=== PATIENT | male | born 1985 | race Caucasian/White ===

== ENCOUNTER 2018-11-22 14:32 | Outpatient (CLI) | payer MEDICAID, SELFPAY ==
[2018-11-28 18:21] LABS: Result Summary NEGATIVE; Specimen WB Whole Blood
== END 2018-11-22 14:52 ==
PROVIDERS: Visit Provider Advanced Practice Midwife
DX: Z13.79 Encounter for other screening for genetic and chromosomal anomalies (principal)
CPT/HCPCS: 81220

== ENCOUNTER 2018-12-28 01:56 | Outpatient (CLI) | payer MEDICAID, SELFPAY ==
[2018-12-28 08:29] LABS: ALT 29 U/L (12-78); AST 20 U/L (15-37); Alkaline Phosphatase 71 U/L (46-116); Anion Gap 7.7 mmol/L (3-11); BUN 15 mg/dL (7-18); Bilirubin, Total 0.7 mg/dL (0.2-1.0); CO2 29.3 mmol/L (21.0-32.0); CREATININE 0.98 mg/dL (0.70-1.30); Calcium 9.1 mg/dL (8.5-10.1); Chloride 104 mmol/L (98-107); Cholesterol 196 mg/dL (50-200); Glucose 87 mg/dL (70-100); HDL Cholesterol 58 mg/dL (40-60); LDL CHOLESTEROL 125 mg/dL (<100); Potassium 4.4 mmol/L (3.5-5.1); Sodium 141 mmol/L (136-145); Total Protein 7.1 g/dL (6.4-8.2); Triglyceride 42 mg/dL (30-150)
== END 2018-12-28 02:16 ==
PROVIDERS: Visit Provider Family Medicine
DX: Z13.220 Encounter for screening for lipoid disorders (principal); Z13.228 Encounter for screening for other metabolic disorders
CPT/HCPCS: 36415; 80053; 80061; 83721

== ENCOUNTER 2019-06-18 18:31 | Inpatient (IN) | payer OTHER, SELFPAY ==
[2019-06-18] VITALS (30 sets, daily range): BP systolic 114–153; BP diastolic 60–90; PULSE 68–111; RESP 4–30; TEMP 36.2–37.4; O2SAT 92–98
[2019-06-18] MEDS: Albuterol/Ipratropium 3 ML UPD VIAL UPD ×2 (18:51→23:15)
[2019-06-18] MEDS: methylPREDNISolone SUCC 125 MG VIAL IVP (18:51)
--- NOTE | 2019-06-18 18:54 | NUR.NOTE ---
Nursing Note: pt reports nausea, verbal order for zofran obtained but pt declines moved pt to room 6
[2019-06-18 19:01] LABS: Abs Immature Grans 0.03 k/cumm (0.0-0.09); HCT 46.1 % (40.0-50.0); Mean Corp. HGB Concentration 34.7 g/dL (32.0-36.0); Mean Corpuscular Volume 83.5 fL (80-95); Mean Platelet Volume 9.7 fL (8.0-11.0); Platelet Count 279 x1000/uL (130-400); RBC 5.52 m/cumm (4.50-6.00); RBC Distribution Width 13.8 % (11.8-14.1); White Blood Cell Count 12.05 k/cumm (4.4-10.8)
[2019-06-18 19:03] LABS: BE (Venous) 4.8 mmol/L (-3-3); HCO3 (Venous) 30 mmol/L (22-28); O2 Sat (Venous) 48 % (70-80); TCO2 (Venous) 27 mmol/L (22-29); pCO2 (Venous) 52 mm/Hg (34-47); pH (Venous) 7.37 (7.32-7.43); pO2 (Venous) 28 mm/Hg (28-44)
--- NOTE | 2019-06-18 19:15 | DI.RAD_ITS ---
EXAM: XR CHEST 2V PA LATERAL INDICATION: sob, diminished in right lung trevino. COMPARISON: No exams were available for comparison TECHNIQUE: 2D digital imaging was performed. FINDINGS: The heart is not enlarged. Bilateral scattered linear radiodensities may represent small areas of sc arring or atelectasis. No gross consolidation seen. No pleural effusion seen. IMPRESSION: Question bilateral areas atelectasis or scarring. No other significant abnormality.
[2019-06-18 19:21] LABS: ALT 24 U/L (16-63); AST 15 U/L (15-37); Albumin 4.1 g/dL (3.4-5.0); Alkaline Phosphatase 86 U/L (46-116); Bilirubin, Total 0.3 mg/dL (0.2-1.0); CREATININE 1.23 mg/dL (0.70-1.30); Calcium 9.1 mg/dL (8.5-10.1); Chloride 104 mmol/L (98-107); Glucose 101 mg/dL (70-100); Potassium 4.2 mmol/L (3.5-5.1); Sodium 143 mmol/L (136-145); Total Protein 7.9 g/dL (6.4-8.2); Troponin I 0.05 ng/mL (0.00-0.06)
[2019-06-18 19:30] LABS: Absolute Eosinophil Count 1.33 k/cumm (0.0-0.7); Absolute Lymphocyte Count 2.17 k/cumm (1.2-3.4); Absolute Monocyte Count 1.21 k/cumm (0.11-0.7); Absolute Neutrophil Count 7.35 k/cumm (1.2-6.7); Atypical Lymphocytes % 3; Diff Comment Manual Differential; RBC Morphology Normal
[2019-06-18 19:46] LABS: BUN 17 mg/dL (7-18)
--- NOTE | 2019-06-18 19:56 | DI.VRAD_ITS ---
PROCEDURE INFORMATION: Exam: XR Chest, 2 Views Exam date and time: 06/18/2019 7:25 PM Clinical history: 33 years old, male; Cough and shortness of breath; Patient HX: SOB and cough for a few days worsening today TECHNIQUE: Imaging protocol: XR of the chest Views: 2 views. COMPARISON: No relevant prior studies available. FINDINGS: Lungs: Unremarkable. No consolidation. Pleural space: Unremarkable. No pleural effusion. No pneumothorax. Heart/Mediastinum: Unremarkable. No cardiomegaly. Bones/joints: Unremarkable. IMPRESSION: No acute findings. Dictated and Authenticated by: Aleida Sosa MD. Ordering:JON Mckinney MD
[2019-06-18] MEDS: Albuterol/Ipratropium 3 ML UPD VIAL (20:18)
--- NOTE | 2019-06-18 20:37 | ED.GENADUL_ITS ---
Discharge Plan Disposition Patient Disposition: [facility] INPATIENT Condition: Good Discharge Details Chief Complaint: SOB Clinical Impression: Reactive airway disease, SOB (shortness of breath) Primary Care Provider: Richard Herron ED Provider: Hank Parikh Home Meds and New Rx's Prescriptions: No Action albuterol sulfate 90 mcg/actuation HFA aerosol inhaler 2 puff IH Q6H PRN (Reason: shortness of breath or wheezing) Qty: 18 RF: 6 Medical Decision Making This is a 33-year-old male with no past medical history to speak of who presents today for shortness of breath. He had a recent mild cough over the last few days, mild shortness of breath, he was started on an inhaler by his PCP, as well as reflux medications. However tonight he had a sudden onset of se laine notable right-sided shortness of breath. Upon arrival to the ED he had almost no breath sounds in his right lung trevino, diminished breath sounds on the left, however he was not hypoxic he was notably tachypneic. EKG was unremarkable, concern was for acute reactive airway disease. He does not smoke, he has no history of reactive airway disease. He denies any type of work that would preclude him to reactive airway disease. He denies any concerning red flags for pulmonary embolism. He denies any history of fever. He was given 3 breathing treatments, he had mild to moderate improvement of his breath sounds, wheezes did start in the right lung trevino. Patient's oxygen stayed relatively stable however he did have mild dips into the low 90s. He was given 2 L of supplemental oxygen. At this time his respiratory status is notably improved, however with his continued mild to moderate shortness of breath with no clear clinical history of asthma I do feel that 12 the 24-hour observation is indicated for continued breathing treatments, steroids, close management. I discussed the case with the hospitalist and he agrees. I have extensively reviewed the treatment plan with the patient. I have addressed all patient concerns at this time. I have also discussed the plan with the admitting physician and they agree with the current assessment and plan and have agreed to assume responsibility for the patient. All parties demonstrate verbal understanding and agreement with our assessment and plan at this time. EKG 18: 39 Rate 86, no significant ST elevations or depressions, no T wave inversions, no significant Q waves. No evidence of STEMI. FINDINGS: Lungs: Unremarkable. No consolidation. Pleural space: Unremarkable. No pleural effusion. No pneumothorax. Heart/Mediastinum: Unremarkable. No cardiomegaly. Bones/joints: Unremarkable. IMPRESSION: No acute findings. Dictated and Authenticated by: Aleida Sosa MD. Ordering:JON Mckinney MD HPI General Date/Time Provider Initiated Documentation: 06/18/19 18:38 . 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 Patient has never smoked, he denies any history of lung disease or difficulty breathing. Over the last few days he has noticed a mild cough, with some occasional mild shortness of breath. He was started on an inhaler by his PCP, as well as some mild reflux medications. These did not seem to help much at all, and then this evening he presents today for evaluation of severe shortness of breath and tachypnea. He states that he feels that he cannot breathe at all, he feels notably short of breath. He denies any chest pain, hemoptysis, or productive yellow sputum.. Denies PE risk factors such as recent long car rides, immobilization, recent surgery, prior history of DVT or PE, family history of PE or DVT, morbid obesity, exogenous estrogen and smoking, hemoptysis, history of cancer. He has no other complaints at this time. No other modifying factors. Related Data Home Medications Medication Instructions Recorded Confirmed albuterol sulfate 90 mcg/actuation 2 puff IH Q6H PRN #18 gm 06/16/19 06/18/19 aerosol inhaler Previous Rx's Medication Instructions Recorded albuterol sulfate 90 mcg/actuation 2 puff IH Q6H PRN #18 gm 06/16/19 aerosol inhaler Allergies Allergy/AdvReac Type Severity Reaction Status Date / Time No Known Allergies Allergy Verified 06/18/19 18:59 General Stated Complaint: SOB KAYLAN: 2 Review of Systems Review of Systems ROS Unobtainable: All systems reviewed & are unremarkable except as noted in HPI and below PFSH Medical History (Updated 06/16/19 @ 08:18 by Richard Herron DO) Allergic asthma (Acute) Family History (Updated 12/23/18 @ 08:56 by Denisse Long LPN) Mother No problems noted. Father Hypertension Brother No problems noted. Brother No problems noted. 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 Current gender identity: male What is your relationship status?: Panel score (0-1 are the most socially isolated patients): 1 What type of physical activity do you participate in: other Details: physically active with job Frequency: 5-6 times per week Seatbelt use: always 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 3.ENT: Atraumatic external nose and ears. Moist MM. Neck: Symmetric, trachea midline, No thyromegaly. 4.CVS: +S1/S2, No murmurs or gallops. Peripheral pulses 2+ and equal in all extremities. Brisk capillary refill in all extremities. 5.RESP: Notable tachypnea, notable respiratory effort, nearly absent breath sounds on the right, mild breath sounds are present on the left. No wheezes rales or rhonchi whatsoever. 6.GI: Soft, Nontender/Nondistended, No hepatosplenomegaly. No guarding or rebound. 7.MSK: Normocephalic/Atraumatic, Extremities w/o deformity or ttp No cyanosis or clubbing, Normal movement of all extremities 8.Skin: Warm, Dry. No rashes or lesions. 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 Sensation grossly intact, no focal neurologic deficits. 10.Psych: (AAO) x3. Appropriate mood and affect Course Vital Signs Vital signs: Vital Signs Temperature 36.2 C L 06/18/19 18:41 Pulse 88 06/18/19 18:41 Respiratory Rate 30 H 06/18/19 18:41 Blood Pressure 132/90 06/18/19 18:41 Pulse Oximetry 95 06/18/19 18:41 Temperature 37.4 C 06/18/19 19:53 Temperature Source Temporal Artery Scan 06/18/19 19:53 Pulse 77 06/18/19 20:18 Pulse 89 06/18/19 19:50 Respiratory Rate 24 06/18/19 20:18 Respiratory Effort Labored 06/18/19 19:06 Respiratory Pattern Tachypnea 06/18/19 19:06 Blood Pressure 117/77 06/18/19 19:46 Blood Pressure Mean 88 06/18/19 19:46 Blood Pressure Position Sitting 06/18/19 18:41 Pulse Oximetry 98 06/18/19 20:18 Oxygen Delivery Method Nasal Cannula 06/18/19 20:18 Oxygen Flow Rate 2 06/18/19 20:18 Pain Level 0 06/18/19 18:41 Lab/Test Results Lab/Test Results: Laboratory Tests Range/Units 06/18/19 06/18/19 06/18/19 15:43 15:43 15:43 WBC (4.4-10.8) k/cumm 12.05 H RBC (4.50-6.00) m/cumm 5.52 Hgb (13.5-17.5) g/dL 16.0 Hct (40.0-50.0) % 46.1 MCV (80-95) fL 83.5 MCH (27.0-33.0) pg 29.0 MCHC (32.0-36.0) g/dL 34.7 RDW (11.8-14.1) % 13.8 Plt Count (130-400) x1000/uL 279 MPV (8.0-11.0) fL 9.7 Immature Gran % 0.0 Neutrophils % 61.0 Band Neutrophils % % 0.0 Lymphocytes % 15.0 Atypical Lymphs % 3 Monocytes % 10.0 Eosinophils % 11.0 Basophils % 0.0 Absolute Neutrophils (1.2-6.7) k/cumm 7.35 H Absolute Lymphocytes (1.2-3.4) k/cumm 2.17 Absolute Monocytes (0.11-0.7) k/cumm 1.21 H Absolute Eosinophils (0.0-0.7) k/cumm 1.33 H Absolute Basophils (0.0-0.2) k/cumm 0.00 Differential Comment Manual differential RBC Morphology Normal VBG pH (7.32-7.43) 7.37 VBG pCO2 (34-47) mm/Hg 52 H VBG pO2 (28-44) mm/Hg 28 VBG HCO3 (22-28) mmol/L 30 H VBG Total CO2 (22-29) mmol/L 27 VBG O2 Saturation (70-80) % 48 L VBG Base Excess (-3-3) mmol/L 4.8 H Sodium (136-145) mmol/L 143 Potassium (3.5-5.1) mmol/L 4.2 Chloride (98-107) mmol/L 104 Carbon Dioxide (21.0-32.0) mmol/L 30.0 Anion Gap (3-11) mmol/L 9.0 BUN (7-18) mg/dL 17 Creatinine (0.70-1.30) mg/dL 1.23 Estimated GFR/1.73 m2 (mL/min/1.73m2) >= 60.00 Glucose (70-100) mg/dL 101 H Calcium (8.5-10.1) mg/dL 9.1 Total Bilirubin (0.2-1.0) mg/dL 0.3 AST (15-37) U/L 15 ALT (16-63) U/L 24 Alkaline Phosphatase (46-116) U/L 86 Troponin I (0.00-0.06) ng/mL 0.05 Total Protein (6.4-8.2) g/dL 7.9 Albumin (3.4-5.0) g/dL 4.1
--- NOTE | 2019-06-18 21:14 | NUR.NOTE ---
Assumed care of pt. Denies pain. maintaining sat of 96% on 2L.
[2019-06-18 21:21] LABS: Magnesium 2.1 mg/dL (1.8-2.4)
--- NOTE | 2019-06-18 23:12 | HPE_ITS ---
Date of service: 06/18/19 Time of Service: 23:13 Assessment and Plan Assessment and plan (1) Reactive airway disease: Status: Acute Assessment and plan: continue scheduled aerosolized bronchodilators, iv corticosteroids and cough suppressants. I do not feel that he needs antibiotics as this is likely precipitated by acute viral illness. I will ask RT to monitor his peak flows. He should get a formal workup for asthma once he is over his acute illness. Qualifiers: Asthma complication type: with acute exacerbation Asthma severity: moderate (2) Acute viral bronchitis: Status: Acute Assessment and plan: as above. Will check influenza screen given his severe cough and bronchospasm and his and daughter's recent respiratory illness. History of Present Illness History of Present Illness Chief Complaint: dyspnea Narrative: 33-year-old male non-smoker who presents to the emergency department with 1 week history of cough and dyspnea. This is gotten progressively worse over the last 24 hours. He saw his primary care provider 2 days ago and was prescribed an albuterol inhaler and Flonase nasal spray and was told he probably had allergies and acute bronchospasm. His and 3-month-old daughter has been ill with a cough. Patient denies any fever or chills however his cough is been occasionally productive of yellowish mucus. His coughing has kept him awake at night. Upon arrival to the emergency department he was tachypneic with respiratory rate of 30 and a room air oxygen saturation 95%. While in the emergency department his oxygen saturation dropped to 92% but increased to 96% with 2 L of oxygen. Upon arrival he was notably dyspneic with poor air movement. He was given a couple of DuoNeb updrafts in the emergency department and Solu-Medrol 125 mg IV and received remarkable improvement in his airflow. Patient denies any history of asthma but has seasonal allergies as well as allergies to cat dander. He is a non-smoker. 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 He does not recall being exposed to any asbestos fibers or fiberglass particles. 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 He has had no long distance travel or prolonged immobilization or recent surgeries that would predispose him to thromboembolism. He denies any chest pain or pressure except when coughing. He is now being admitted on observation status for treatment of acute reactive airway disease. Review of Systems Constitutional Constitutional: Denies fever(s) Eyes Eyes: Denies irritation and Denies itchy eyes ENT Ears, Nose, Mouth, and Throat: Denies otalgia, Denies post nasal drip, Denies sinus pressure, Denies sore throat and Denies throat swelling Cardiovascular Cardiovascular: Reports as per HPI Respiratory Respiratory: Reports as per HPI and Reports wheezing Gastrointestinal Gastrointestinal: Reports system reviewed and no additional complaints, except as docu Allergic/Immunologic Allergic/Immunologic: Denies itchy eyes, Reports seasonal rhinorrhea, Denies throat swelling and Reports wheezing REPLACED BY [facility] Medical History (Updated 06/19/19 @ 00:14 by Raul Adame) Allergic asthma (Suspected) Family History (Updated 12/23/18 @ 08:56 by Denisse Long LPN) Mother No problems noted. Father Hypertension Brother No problems noted. Brother No problems noted. 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 Current gender identity: male What is your relationship status?: Panel score (0-1 are the most socially isolated patients): 1 What type of physical activity do you participate in: other Details: physically active with job Frequency: 5-6 times per week Seatbelt use: always 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 Working smoke detector in home: Yes Carbon monox detector in home: Yes Do you feel safe at home: Yes Do you feel safe in your relationship?: Yes Meds Home Medications and Allergies Home Medications Medication Instructions Recorded Confirmed Type albuterol sulfate 90 mcg/actuation 2 puff IH Q6H PRN #18 gm 06/16/19 06/18/19 Rx aerosol inhaler Allergies Allergy/AdvReac Type Severity Reaction Status Date / Time No Known Allergies Allergy Verified 06/18/19 18:59 Exam Const General: cooperative, no acute distress and well developed Nutritional Appearance: average body habitus Orientation: alert, awake and oriented x3 HENMT Head: normal to inspection, no palpable skull fracture, normocephalic, atraumatic and no acral cyanosis Ears: TM's normal bilaterally and EAC's normal General nose exam: external nose normal, nares normal and nasal mucous membranes and turbinates normal Face and sinus: normal facial exam Mouth: oral mucosae normal Neck Neck: normal visual inspection, full ROM, no lymphadenopathy, trachea midline, supple and no JVD Thyroid: thyroid normal Carotids: normal carotid upstroke Lymphatic: no lymphadenopathy noted Resp Effort & Inspection: able to speak in complete sentences and cough Quality of cough: dry Auscultation: wheezes expiratory wheezes, inspiratory wheezes and scattered wheezes Cardio Jugular venous pressure: no JVD Palpation: normal PMI Rate: regular rate Rhythm: regular rhythm Heart Sounds: S1 normal, S2 normal, normal, physiologic split S2 and no murmurs GI Inspection: normal to inspection Palpation: soft, no hepatosplenomegaly and nontender Percussion: normal to percussion Auscultation: normal bowel sounds Extrem General: normal to inspection, full ROM, normal capillary refill, no clubbing, cyanosis or edema, no pedal edema and no calf tenderness Results Imaging Chest x-ray: image reviewed (PROCEDURE INFORMATION: Exam: XR Chest, 2 Views Exam date and time: 06/18/2019 7:25 PM Clinical history: 33 years old, male; Cough and shortness of breath; Patient HX: SOB and cough for a few days worsening today TECHNIQUE: Imaging protocol: XR of the chest Views: 2 views. COMPARISON: No relevant p) Labs Result diagrams: 06/18/19 15:43 06/18/19 15:43 Labs: Laboratory Results - last 24 hr 06/18/19 06/18/19 06/18/19 15:43 15:43 15:43 WBC 12.05 H RBC 5.52 Hgb 16.0 Hct 46.1 MCV 83.5 MCH 29.0 MCHC 34.7 RDW 13.8 Plt Count 279 MPV 9.7 Immature Gran % 0.0 Neutrophils % 61.0 Band Neutrophils % 0.0 Lymphocytes % 15.0 Atypical Lymphs % 3 Monocytes % 10.0 Eosinophils % 11.0 Basophils % 0.0 Absolute Neutrophils 7.35 H Absolute Lymphocytes 2.17 Absolute Monocytes 1.21 H Absolute Eosinophils 1.33 H Absolute Basophils 0.00 Differential Comment Manual differential RBC Morphology Normal VBG pH 7.37 VBG pCO2 52 H VBG pO2 28 VBG HCO3 30 H VBG Total CO2 27 VBG O2 Saturation 48 L VBG Base Excess 4.8 H Sodium 143 Potassium 4.2 Chloride 104 Carbon Dioxide 30.0 Anion Gap 9.0 BUN 17 Creatinine 1.23 Estimated GFR/1.73 m2 >= 60.00 Glucose 101 H Calcium 9.1 Magnesium Total Bilirubin 0.3 AST 15 ALT 24 Alkaline Phosphatase 86 Troponin I 0.05 Total Protein 7.9 Albumin 4.1 06/18/19 15:43 WBC RBC Hgb Hct MCV MCH MCHC RDW Plt Count MPV Immature Gran % Neutrophils % Band Neutrophils % Lymphocytes % Atypical Lymphs % Monocytes % Eosinophils % Basophils % Absolute Neutrophils Absolute Lymphocytes Absolute Monocytes Absolute Eosinophils Absolute Basophils Differential Comment RBC Morphology VBG pH VBG pCO2 VBG pO2 VBG HCO3 VBG Total CO2 VBG O2 Saturation VBG Base Excess Sodium Potassium Chloride Carbon Dioxide Anion Gap BUN Creatinine Estimated GFR/1.73 m2 Glucose Calcium Magnesium 2.1 Total Bilirubin AST ALT Alkaline Phosphatase Troponin I Total Protein Albumin Last Vital Signs Temp 37.1 C 06/18/19 21:36 Pulse 111 H 06/18/19 21:47 Resp 17 06/18/19 21:36 BP 153/76 H 06/18/19 21:36 Pulse Ox 97 06/18/19 21:36
[2019-06-19] VITALS (22 sets, daily range): BP systolic 113–136; BP diastolic 57–72; PULSE 69–142; RESP 1–24; TEMP 31–37.1; O2SAT 90–97
[2019-06-19] MEDS: Benzonatate 200 MG CAP PO ×4 (01:27→20:33)
[2019-06-19] MEDS: guaiFENesin 600 MG TABCR PO ×3 (01:27→20:34)
[2019-06-19] MEDS: Normal Saline Flush 10 ML SYR IVP ×3 (01:27→20:34)
[2019-06-19] MEDS: methylPREDNISolone SUCC 125 MG VIAL 60 MG IVP ×2 (01:31→08:23)
[2019-06-19] MEDS: Albuterol/Ipratropium 3 ML UPD VIAL UPD ×2 (04:11→08:02)
[2019-06-19] MEDS: Acetaminophen 325 MG TAB PO (08:29)
--- NOTE | 2019-06-19 11:59 | PDOC.CMIN ---
- If Service Date Differs Date of service: 06/19/19 Time of Service: 11:59 Care Management Initial Assess REASON FOR HOSPITALIZATION:: Dyspnea. PAST MEDICAL HISTORY/PAST SURGICAL HISTORY:: Medical History: Allergic asthma (suspected). No surgical history of record. PREVIOUS FUNCTIONAL STATUS/SOCIAL/FAMILY SUPPORTS:: Braden lives in [place] with his and two children. 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 Braden shares that they have purchased a house in [place], [place], and are in the process of renovating it. When not at work, Braden enjoys doing outdoor activities. He is independent at baseline. CURRENT FUNCTIONAL STATUS:: Braden is sitting up in bed when CM meets with him. His and 3 mo old daughter are present in the room. Braden is pleasant and readily engages in conversation. He states his flu test is negative and he was told by the medical staff that he will be able to return home once his pulse and O2 have stabilized. He expresses a desire to return to work as soon as possible as his employer currently only has one other worker. ADVANCE DIRECTIVES:: None on file. Has patient been provided with information about the portal?: Yes Did the patient sign up for the portal?: Yes CODE STATUS:: Full Code INSURANCE COVERAGE / FINANCIAL ISSUES:: MVP. CURRENT HOME/COMMUNITY SERVICES/EQUIPMENT:: None currently. PRIMARY CARE PHYSICIAN:: Richard Herron POTENTIAL DISCHARGE NEEDS:: Follow-up with PCP and discharge plan of care. PATIENT/FAMILY EDUCATION NEEDS:: Discharge plan, limitations, follow-up plan, Ask Me Three. ANTICIPATED BARRIERS TO DISCHARGE:: None. TRANSPORTATION:: Spouse will provide transportation via private vehicle. PLAN:: Braden will be discharged home when medically cleared by provider. Anticipate no additional services needed at time of discharge. Patient's will transport him home upon discharge via private vehicle.
--- NOTE | 2019-06-19 12:13 | PHARADMIT ---
Admission Pharmacy Clinical Review dyspnea Code Status Full Code Current Weight 93 kg Renally Cleared and Narrow Therapeutic Index Meds Crcl ~98.0 mL/min current meds okay QTc Value / Action Taken QTc 438 BP Control, Fever BP 125/65 afebrile Electrolytes reviewed n/a DVT Prophylaxis enoxaparin Opiate Usage / Scheduled Bowel Regimen Ordered no/prn Plt/SCr for Heparin / Enoxaparin plt 279 SCr 1.23 INR for Warfarin n/a H/H stable, WBC/Bands h/h 16.0/46.1 WBC 12.05 Antibiotic appropriateness none Cultures and Sensitivities rapid flu negative Surgical ABX d/c within 24 hr n/a DM control / Insulin Dosing BG 101 none Heart Failure (Check EF%) (LORI's, B-Block, Diuretics) none IV to PO Switch n/a Home Meds Reviewed yes Home Meds Not Ordered all ordered (nebs instead of inhaler) Comments already improving per morning report
[2019-06-19] MEDS: methylPREDNISolone SUCC 40 MG VIAL IVP ×2 (14:53→20:33)
--- NOTE | 2019-06-19 16:41 | W.PM.PROGNOT ---
Date of Service Date of service: 06/19/19 Time of Service: 16:41 Assessment and Plan Assessment and plan (1) Reactive airway disease: Status: Acute Assessment and plan: Potentially an acute viral illness causing an associated reactive airway disease. Mr. Raya has sick contact with his family as previously stated. Continue IV steroids and antitussive medications, but change DuoNeb's to leave albuterol given concurrent and symptomatic tachycardia. Monitor symptoms closely, and supplement with oxygen as needed. Qualifiers: Asthma complication type: with acute exacerbation Asthma severity: moderate (2) DVT prophylaxis: Status: Acute Assessment and plan: SC Lovenox. Subjective Subjective Interval history since last seen: Very pleasant 33 year old man without significant past Medical History, admitted from [facility] Emergency Department on 06/18 with a diagnosis of worsening dyspnea. Mr. Raya has a prior history significant for seasonal allergies. His and daughter have been ill at home from what appears to be a respiratory illness, under conservative management as an outpatient and improving. The patient however has been having difficulty with shortness of breath for over a week, progressively worsening. He was initiated on inhaler therapy and an intranasal glucocorticoid by his PCPs office but without significant improvement. At time of presentation he reported significant worsening in his dyspnea. Work-up in the ED was remarkable for essentially normal labs, non-ischemic ECG, and normal CXR (bilateral scattered areas of scarring vs. atelectasis. He did have a very mild leukocytosis, but has remained afebrile since admission. He was also noted to have wheezing on exam and tachypneic, but without associated hypoxia. He was referred for admission for further evaluation and treatment. This morning Mr. Raya reports some mild improvement in his symptoms overall, but with continued dyspnea. He denies any sputum production. No overnight events reported. Remains afebrile. Exam Narrative Exam Narrative: General: Patient appears comfortable, AAOX3, NAD Neck: Supple CV: Regular, tachycardic, S1S2, No rubs, murmurs, or gallops. Pulmonary: Clear to auscultation bilaterally, no crackles, wheezing, or rhonchi. Good air entry on exam. Abdomen: + Bowel Sounds, soft, nontender, nondistended Vascular: No lower extremity edema Psych: Normal mood and affect. Objective Objective Clinical Data: Abnormal lab results 06/18/19 06/18/19 06/18/19 Range/Units 15:43 15:43 15:43 WBC 12.05 H (4.4-10.8) k/cumm Absolute Neutrophils 7.35 H (1.2-6.7) k/cumm Absolute Monocytes 1.21 H (0.11-0.7) k/cumm Absolute Eosinophils 1.33 H (0.0-0.7) k/cumm VBG pCO2 52 H (34-47) mm/Hg VBG HCO3 30 H (22-28) mmol/L VBG O2 Saturation 48 L (70-80) % VBG Base Excess 4.8 H (-3-3) mmol/L Glucose 101 H (70-100) mg/dL Vital Signs Temperature 37 C 06/19/19 16:14 Temperature Source Tympanic 06/19/19 16:14 Pulse 113 H 06/19/19 16:27 Pulse Rhythm Regular 06/19/19 07:38 Pulse 96 H 06/18/19 21:00 Respiratory Rate 18 06/19/19 16:14 Respiratory Effort Non-Labored 06/19/19 07:38 Respiratory Depth Normal 06/19/19 07:38 Respiratory Pattern Normal 06/19/19 07:38 Blood Pressure 134/57 L 06/19/19 16:14 Blood Pressure Mean 85 06/18/19 20:46 Blood Pressure Position Sitting 06/18/19 18:41 Pulse Oximetry 96 06/19/19 16:14 Oxygen Delivery Method Hi Flow Nasal Cannula 06/19/19 16:14 Oxygen Flow Rate 0 06/19/19 16:14 Fraction of Inspired Oxygen (FIO2) 37 06/19/19 15:50 Pain Level 0 06/19/19 16:14 Comment 06/19/19 10:11 Intake & Output 06/18/19 06/19/19 06/19/19 23:59 11:59 23:59 Intake Total 240 / 250 Balance 240 / 250 Weight 97.976 kg 93 kg Intake: IV Oral 240 / 240 Other: Comment voids in toilet. Flushed. Urine not assessed at this time. Voiding Methods Toilet Laboratory Results WBC 12.05 k/cumm (4.4-10.8) H 06/18/19 15:43 RBC 5.52 m/cumm (4.50-6.00) 06/18/19 15:43 Hgb 16.0 g/dL (13.5-17.5) 06/18/19 15:43 Hct 46.1 % (40.0-50.0) 06/18/19 15:43 MCV 83.5 fL (80-95) 06/18/19 15:43 MCH 29.0 pg (27.0-33.0) 06/18/19 15:43 MCHC 34.7 g/dL (32.0-36.0) 06/18/19 15:43 RDW 13.8 % (11.8-14.1) 06/18/19 15:43 Plt Count 279 x1000/uL (130-400) 06/18/19 15:43 MPV 9.7 fL (8.0-11.0) 06/18/19 15:43 Immature Gran % 0.0 06/18/19 15:43 Neutrophils % 61.0 06/18/19 15:43 Band Neutrophils % 0.0 % 06/18/19 15:43 Lymphocytes % 15.0 06/18/19 15:43 Atypical Lymphs % 3 06/18/19 15:43 Monocytes % 10.0 06/18/19 15:43 Eosinophils % 11.0 06/18/19 15:43 Basophils % 0.0 06/18/19 15:43 Absolute Neutrophils 7.35 k/cumm (1.2-6.7) H 06/18/19 15:43 Absolute Lymphocytes 2.17 k/cumm (1.2-3.4) 06/18/19 15:43 Absolute Monocytes 1.21 k/cumm (0.11-0.7) H 06/18/19 15:43 Absolute Eosinophils 1.33 k/cumm (0.0-0.7) H 06/18/19 15:43 Absolute Basophils 0.00 k/cumm (0.0-0.2) 06/18/19 15:43 Differential Comment Manual differential 06/18/19 15:43 RBC Morphology Normal 06/18/19 15:43 VBG pH 7.37 (7.32-7.43) 06/18/19 15:43 VBG pCO2 52 mm/Hg (34-47) H 06/18/19 15:43 VBG pO2 28 mm/Hg (28-44) 06/18/19 15:43 VBG HCO3 30 mmol/L (22-28) H 06/18/19 15:43 VBG Total CO2 27 mmol/L (22-29) 06/18/19 15:43 VBG O2 Saturation 48 % (70-80) L 06/18/19 15:43 VBG Base Excess 4.8 mmol/L (-3-3) H 06/18/19 15:43 Sodium 143 mmol/L (136-145) 06/18/19 15:43 Potassium 4.2 mmol/L (3.5-5.1) 06/18/19 15:43 Chloride 104 mmol/L (98-107) 06/18/19 15:43 Carbon Dioxide 30.0 mmol/L (21.0-32.0) 06/18/19 15:43 Anion Gap 9.0 mmol/L (3-11) 06/18/19 15:43 BUN 17 mg/dL (7-18) 06/18/19 15:43 Creatinine 1.23 mg/dL (0.70-1.30) 06/18/19 15:43 Estimated GFR/1.73 m2 >= 60.00 (mL/min/1.73m2) 06/18/19 15:43 Glucose 101 mg/dL (70-100) H 06/18/19 15:43 Calcium 9.1 mg/dL (8.5-10.1) 06/18/19 15:43 Magnesium 2.1 mg/dL (1.8-2.4) 06/18/19 15:43 Total Bilirubin 0.3 mg/dL (0.2-1.0) 06/18/19 15:43 AST 15 U/L (15-37) 06/18/19 15:43 ALT 24 U/L (16-63) 06/18/19 15:43 Alkaline Phosphatase 86 U/L (46-116) 06/18/19 15:43 Troponin I 0.05 ng/mL (0.00-0.06) 06/18/19 15:43 Total Protein 7.9 g/dL (6.4-8.2) 06/18/19 15:43 Albumin 4.1 g/dL (3.4-5.0) 06/18/19 15:43
[2019-06-19] MEDS: Budesonide 0.5 MG/2 ML UPD VIAL UPD (20:33)
[2019-06-20] VITALS (11 sets, daily range): BP systolic 127–145; BP diastolic 61–87; PULSE 83–94; RESP 1–24; TEMP 31–37.4; O2SAT 95–97
[2019-06-20] MEDS: methylPREDNISolone SUCC 40 MG VIAL IVP ×3 (02:22→13:16)
[2019-06-20] MEDS: Normal Saline Flush 10 ML SYR IVP ×2 (02:22→13:17)
[2019-06-20] MEDS: Levalbuterol 0.63 MG/3 ML UPD VIAL UPD (06:17)
[2019-06-20 07:46] LABS: Abs Immature Grans 0.13 k/cumm (0.0-0.09); Absolute Monocyte Count 1.04 k/cumm (0.11-0.7); HGB 15.4 g/dL (13.5-17.5); Immature Grans % 0.5; Lymphocytes % 4.6; Mean Corp. HGB Concentration 34.2 g/dL (32.0-36.0); Mean Corpuscular Volume 84.7 fL (80-95); Mean Platelet Volume 10.6 fL (8.0-11.0); Monocytes % 3.7; Neutrophils % 91.2; Platelet Count 298 x1000/uL (130-400); RBC 5.31 m/cumm (4.50-6.00); RBC Distribution Width 14.5 % (11.8-14.1)
[2019-06-20 07:55] LABS: Absolute Lymphocyte Count 1.29 k/cumm (1.2-3.4); Absolute Neutrophil Count 25.65 k/cumm (1.2-6.7); Anion Gap 11.4 mmol/L (3-11); BUN 26 mg/dL (7-18); CO2 23.6 mmol/L (21.0-32.0); CREATININE 1.12 mg/dL (0.70-1.30); Calcium 9.2 mg/dL (8.5-10.1); Chloride 105 mmol/L (98-107); Glucose 121 mg/dL (70-100); Potassium 4.6 mmol/L (3.5-5.1); Sodium 140 mmol/L (136-145); White Blood Cell Count 28.12 k/cumm (4.4-10.8)
[2019-06-20] MEDS: Budesonide 0.5 MG/2 ML UPD VIAL UPD (08:13)
[2019-06-20 08:23] LABS: Diff Comment Agrees w/ Instrument; RBC Morphology Normal
[2019-06-20] MEDS: guaiFENesin 600 MG TABCR PO (08:28)
[2019-06-20] MEDS: Benzonatate 200 MG CAP PO ×2 (08:28→13:16)
[2019-06-20] MEDS: Omnipaque 350 MG/ML 100 ML BTL IJ (12:24)
--- NOTE | 2019-06-20 12:26 | DI.CT_ITS ---
EXAM: CT CHEST PE CTA CLINICAL HISTORY: Persistent Tachypnea TECHNIQUE: Axial CT angiography was performed with multi-slice acquisition and multi-planar and/or 3D reconstructions. CT angiography of the chest was performed with bolus infusion of 100 cc of Omnipaque 350. COMPARISON: No exams were available for comparison FINDINGS: No evidence of pulmonary embolic disease. Thoracic aorta is of normal diameter and major branches of the thorax and upper abdomen are unremarkable. Lungs are clear. No pleural effusion or pneumothora x. No mediastinal or hilar adenopathy. Tracheobronchial tree appears intact. Images obtained through the upper abdomen show unremarkable appearance of liver, spleen, pancreas, ad renals and kidneys as visualized. IMPRESSION: Negative CT angiography of the chest.
--- NOTE | 2019-06-20 16:14 | W.PM.PROGNOT ---
Date of Service Date of service: 06/20/19 Time of Service: 16:15 Assessment and Plan Assessment and plan (1) Reactive airway disease: Status: Acute Assessment and plan: Potentially acute viral illness causing an associated reactive airway disease. Mr. Raya has sick contact with family members. Continue IV steroids and antitussive medications, with change of DuoNebs to Levalbuterol given concurrent and symptomatic tachycardia. Given minimal improvement, and evidence of potential S1Q3T3 on ECG checked CTA of the chest to rule out PE (Although Wells Score was calculated at 0) - No PE or infiltrates. Monitor symptoms closely, and supplement with oxygen as needed. Qualifiers: Asthma severity: moderate Asthma complication type: with acute exacerbation (2) DVT prophylaxis: Status: Acute Assessment and plan: SC Lovenox. Subjective Subjective Interval history since last seen: Very pleasant 33 year old man without significant past Medical History, admitted from [facility] Emergency Department on 06/18 with a diagnosis of worsening dyspnea. Mr. Raya has a prior history significant for seasonal allergies. His and daughter have been ill at home from what appears to be a respiratory illness, under conservative management as an outpatient and improving. The patient however has been having difficulty with shortness of breath for over a week, progressively worsening. He was initiated on inhaler therapy and an intranasal glucocorticoid by his PCPs office but without significant improvement. At time of presentation he reported significant worsening in his dyspnea. Work-up in the ED was remarkable for essentially normal labs, non-ischemic ECG, and normal CXR (bilateral scattered areas of scarring vs. atelectasis. He did have a very mild leukocytosis, but has remained afebrile since admission. He was also noted to have wheezing on exam and tachypneic, but without associated hypoxia. He was referred for admission for further evaluation and treatment. This morning Mr. Raya reports continued mild improvement in his symptoms overall, but with continued dyspnea. He also continues to be tachypneic. Denies any sputum production. Rapid Influenza checked and negative. No overnight events reported. Remains afebrile. Exam Narrative Exam Narrative: General: Patient appears comfortable, AAOX3, NAD Neck: Supple CV: Regular, tachycardic but improved, S1S2, No rubs, murmurs, or gallops. Pulmonary: Clear to auscultation bilaterally, no crackles, wheezing, or rhonchi. Good air entry on exam. Abdomen: + Bowel Sounds, soft, nontender, nondistended Vascular: No lower extremity edema Psych: Normal mood and affect. Objective Objective Clinical Data: Abnormal lab results 06/20/19 06/20/19 Range/Units 06:15 06:15 WBC 28.12 H* (4.4-10.8) k/cumm RDW 14.5 H (11.8-14.1) % Absolute Neutrophils 25.65 H (1.2-6.7) k/cumm Absolute Monocytes 1.04 H (0.11-0.7) k/cumm Anion Gap 11.4 H (3-11) mmol/L BUN 26 H D (7-18) mg/dL Glucose 121 H (70-100) mg/dL Vital Signs Temperature 36.7 C 06/20/19 08:25 Temperature Source Tympanic 06/20/19 08:25 Pulse 94 H 06/20/19 13:15 Pulse Rhythm Regular 06/20/19 10:07 Pulse 96 H 06/18/19 21:00 Respiratory Rate 20 06/20/19 08:25 Respiratory Effort Non-Labored 06/20/19 10:07 Respiratory Depth Normal 06/20/19 10:07 Respiratory Pattern Normal 06/20/19 10:07 Blood Pressure 135/87 06/20/19 08:25 Blood Pressure Mean 85 06/18/19 20:46 Blood Pressure Position Sitting 06/18/19 18:41 Pulse Oximetry 95 06/20/19 11:52 Oxygen Delivery Method Room Air 06/20/19 11:52 Oxygen Flow Rate 0 06/20/19 11:52 Fraction of Inspired Oxygen (FIO2) 37 06/20/19 08:15 Pain Level 0 06/20/19 08:25 Comment 06/19/19 10:11 Intake & Output 06/19/19 06/20/19 06/20/19 23:59 11:59 23:59 Intake Total 490 / 500 240 / 240 Balance 490 / 500 240 / 240 Intake: IV Oral 480 / 480 240 / 240 Laboratory Results WBC 28.12 k/cumm (4.4-10.8) H* 06/20/19 06:15 RBC 5.31 m/cumm (4.50-6.00) 06/20/19 06:15 Hgb 15.4 g/dL (13.5-17.5) 06/20/19 06:15 Hct 45.0 % (40.0-50.0) 06/20/19 06:15 MCV 84.7 fL (80-95) 06/20/19 06:15 MCH 29.0 pg (27.0-33.0) 06/20/19 06:15 MCHC 34.2 g/dL (32.0-36.0) 06/20/19 06:15 RDW 14.5 % (11.8-14.1) H 06/20/19 06:15 Plt Count 298 x1000/uL (130-400) 06/20/19 06:15 MPV 10.6 fL (8.0-11.0) 06/20/19 06:15 Immature Gran % 0.5 06/20/19 06:15 Neutrophils % 91.2 06/20/19 06:15 Band Neutrophils % 0.0 % 06/18/19 15:43 Lymphocytes % 4.6 06/20/19 06:15 Atypical Lymphs % 3 06/18/19 15:43 Monocytes % 3.7 06/20/19 06:15 Eosinophils % 0.0 06/20/19 06:15 Basophils % 0.0 06/20/19 06:15 Absolute Neutrophils 25.65 k/cumm (1.2-6.7) H 06/20/19 06:15 Absolute Lymphocytes 1.29 k/cumm (1.2-3.4) 06/20/19 06:15 Absolute Monocytes 1.04 k/cumm (0.11-0.7) H 06/20/19 06:15 Absolute Eosinophils 0.00 k/cumm (0.0-0.7) 06/20/19 06:15 Absolute Basophils 0.00 k/cumm (0.0-0.2) 06/20/19 06:15 Differential Comment Agrees w/ instrument 06/20/19 06:15 RBC Morphology Normal 06/20/19 06:15 VBG pH 7.37 (7.32-7.43) 06/18/19 15:43 VBG pCO2 52 mm/Hg (34-47) H 06/18/19 15:43 VBG pO2 28 mm/Hg (28-44) 06/18/19 15:43 VBG HCO3 30 mmol/L (22-28) H 06/18/19 15:43 VBG Total CO2 27 mmol/L (22-29) 06/18/19 15:43 VBG O2 Saturation 48 % (70-80) L 06/18/19 15:43 VBG Base Excess 4.8 mmol/L (-3-3) H 06/18/19 15:43 Sodium 140 mmol/L (136-145) 06/20/19 06:15 Potassium 4.6 mmol/L (3.5-5.1) 06/20/19 06:15 Chloride 105 mmol/L (98-107) 06/20/19 06:15 Carbon Dioxide 23.6 mmol/L (21.0-32.0) 06/20/19 06:15 Anion Gap 11.4 mmol/L (3-11) H 06/20/19 06:15 BUN 26 mg/dL (7-18) H D 06/20/19 06:15 Creatinine 1.12 mg/dL (0.70-1.30) 06/20/19 06:15 Estimated GFR/1.73 m2 >= 60.00 (mL/min/1.73m2) 06/20/19 06:15 Glucose 121 mg/dL (70-100) H 06/20/19 06:15 Calcium 9.2 mg/dL (8.5-10.1) 06/20/19 06:15 Magnesium 2.1 mg/dL (1.8-2.4) 06/18/19 15:43 Total Bilirubin 0.3 mg/dL (0.2-1.0) 06/18/19 15:43 AST 15 U/L (15-37) 06/18/19 15:43 ALT 24 U/L (16-63) 06/18/19 15:43 Alkaline Phosphatase 86 U/L (46-116) 06/18/19 15:43 Troponin I 0.05 ng/mL (0.00-0.06) 06/18/19 15:43 Total Protein 7.9 g/dL (6.4-8.2) 06/18/19 15:43 Albumin 4.1 g/dL (3.4-5.0) 06/18/19 15:43
--- NOTE | 2019-06-20 16:41 | W.PM.DS.N ---
Date of service: 06/20/19 Time of Service: 16:41 DS: Diagnosis Discharge Diagnosis (1) Reactive airway disease: Status: Acute Discharge Plan Disposition Patient Disposition: HOME Condition: Stable Discharge Details Chief Complaint: SOB Clinical Impression: Reactive airway disease, SOB (shortness of breath) Reason For Visit: DYSPNEA Admit Date/Time: 06/20/19 09:05 Admit Provider: Raul Adame Attending Provider: Raul Adame Primary Care Provider: Richard Herron ED Provider: Hank Parikh Hospital Course Hospital Course: Chief Complaint: Dyspnea HPI: Very pleasant 33 year old man without significant past Medical History, admitted from [facility] Emergency Department on 06/18 with a diagnosis of worsening dyspnea. Mr. Raya has a prior history significant for seasonal allergies. His and daughter have been ill at home from what appears to be a respiratory illness, under conservative management as an outpatient and improving. The patient however has been having difficulty with shortness of breath for over a week, progressively worsening. He was initiated on inhaler therapy and an intranasal glucocorticoid by his PCP's office but without significant improvement. At time of presentation he reported significant worsening in his dyspnea. Work-up in the ED was remarkable for essentially normal labs, non-ischemic ECG, and normal CXR (bilateral scattered areas of scarring vs. atelectasis). He did have a mild leukocytosis, but has remained afebrile since admission. He was also noted to be tachypneic and wheezing on exam, but without associated hypoxia. He was referred for admission for further evaluation and treatment. This morning Mr. Raya reported continued mild improvement in his symptoms overall, but with continued dyspnea. He also continues to be tachypneic. A CT of his chest was performed and negative for either infiltrates or PE - no other pathology identified. By this afternoon he is feeling vastly improved and requesting to go home. He was also ambulated by RT and found to be non-hypoxic even with ambulation. Rapid Influenza checked and negative. No overnight events reported. Remains afebrile. Hospital Course: (1) Reactive airway disease: Potentially acute viral illness causing an associated reactive airway disease. Mr. Raya has sick contact with family members. Will plan on continuation of steroids with a taper as an outpatient, along with antitussive medications and nebs - a nebulizer machine was provided for him, and he will be prescrubed nebs as well as an inhaler to return home with. He was changed to Levalbuterol given concurrent and symptomatic tachycardia on Duoneb therapy. Given minimal improvement this morning, and evidence of potential S1Q3T3 on ECG checked CTA of the chest to rule out PE (Although Wells Score was calculated at 0) - No PE or infiltrates, and no oxygen requirement. Mr. Raya has improved dramatically and wishes to return home, and deemed likely safe to do so. Will recommend abstaining from work over the next 2-3 days, with close follow-up with PCP. Also, significant leukocytosis this morning is very likely due to steroid effect from high dose IV Solumedrol. Mr. Raya remains afebrile, improved, and without evidence of infiltrates by CT. Will repeat a CBC in 3-5 days as an outpatient to ensure stability as steroids are tapered. (2) DVT prophylaxis: Was maintained on SC Lovenox. Please note that an earlier progress report was issued, but with change in plans to discharge patient later in the day. Please disregard Progress note - this document will serve as today's note and discharge summary. Home Meds and New Rx's Prescriptions: New levalbuterol HCl 0.63 mg/3 mL Solution For Nebulization 0.63 mg UPD Q4H PRN PRNQty: 1 RF: 0 benzonatate 200 mg Capsule 200 mg PO TID Qty: 21 RF: 0 prednisone 20 mg tablet 20 mg PO DAILY Qty: 21 RF: 0 Discontinued albuterol sulfate 90 mcg/actuation HFA aerosol inhaler 2 puff IH Q6H PRN (Reason: shortness of breath or wheezing) Qty: 18 RF: 6 Discharge Instructions Additional Instructions: Please see your primary care provider within 1- 2 weeks of discharge. You should refrain from returning to work for another 2 days, and more if your symptoms do not improve over the next few days. Please contact your primary care provider for an earlier appointment if this is the case. Please use your nebulizer medication liberally over the next 2-3 days, and finish your prednisone course. Please perform blood work in 3-5 days. Stand Alone Forms: Nursing Discharge Form Referrals: Richard Herron DO [Primary Care Provider] - Activity:: No strenuous activity Equipment/Supplies:: Nebulizer Diet:: As Tolerated Discharge Orders Discharge Orders: Discharge Order (Routine); Ordered 06/20/19 Ordered By: Karl Simmons Other Ambulatory Orders: Complete Blood Count w/Diff (Routine) Timeframe: 3 Days Location: None Selected Ordered By: Karl Simmons DS: Summary Status at Discharge Functional status at discharge: independent ambulation Overall status at discharge: patient is back to baseline Mental Status: mental status grossly normal Speech and Movement: speech and movement normal Mood: congruent mood Affect: normal affect Exam Narrative Exam Narrative: General: Patient appears comfortable, AAOX3, NAD Neck: Supple CV: Regular, tachycardic but improved, S1S2, No rubs, murmurs, or gallops. Pulmonary: Clear to auscultation bilaterally, no crackles, wheezing, or rhonchi. Good air entry on exam. Abdomen: + Bowel Sounds, soft, nontender, nondistended Vascular: No lower extremity edema Psych: Normal mood and affect. Psych Mental Status: mental status grossly normal Speech and Movement: speech and movement normal Mood: congruent mood Affect: normal affect DS: Data Vitals/I&O Vitals and I&O: Vital Signs Temperature 37.4 C 06/20/19 16:19 Temperature Source Tympanic 06/20/19 16:19 Pulse 88 06/20/19 16:19 Pulse Rhythm Regular 06/20/19 10:07 Pulse 96 H 06/18/19 21:00 Respiratory Rate 18 06/20/19 16:19 Respiratory Effort Non-Labored 06/20/19 10:07 Respiratory Depth Normal 06/20/19 10:07 Respiratory Pattern Normal 06/20/19 10:07 Blood Pressure 145/74 H 06/20/19 16:19 Blood Pressure Mean 85 06/18/19 20:46 Blood Pressure Position Sitting 06/18/19 18:41 Pulse Oximetry 96 06/20/19 16:19 Oxygen Delivery Method Room Air 06/20/19 16:19 Oxygen Flow Rate 0 06/20/19 16:19 Fraction of Inspired Oxygen (FIO2) 37 06/20/19 08:15 Pain Level 0 06/20/19 16:19 Comment 06/19/19 10:11 Intake & Output 06/19/19 06/20/19 06/20/19 23:59 11:59 23:59 Intake Total 490 / 500 240 / 240 Balance 490 / 500 240 / 240 Intake: IV Oral 480 / 480 240 / 240 Data Completed and Pending Completed studies during hospitalization [Text1]: Exam(s) 06/18/2019 a RAD:XR chest 2V PA & lateral EXAM: XR CHEST 2V PA LATERAL INDICATION: sob, diminished in right lung trevino. COMPARISON: No exams were available for comparison TECHNIQUE: 2D digital imaging was performed. FINDINGS: The heart is not enlarged. Bilateral scattered linear radiodensities may represent small areas of scarring or atelectasis. No gross consolidation seen. No pleural effusion seen. IMPRESSION: Question bilateral areas atelectasis or scarring. No other significant abnormality. ------ Exam(s) a CT:CT chest PE CTA EXAM: CT CHEST PE CTA CLINICAL HISTORY: Persistent Tachypnea TECHNIQUE: Axial CT angiography was performed with multi-slice acquisition and multi-planar and/or 3D reconstructions. CT angiography of the chest was performed with bolus infusion of 100 cc of Omnipaque 350. COMPARISON: No exams were available for comparison FINDINGS: No evidence of pulmonary embolic disease. Thoracic aorta is of normal diameter and major branches of the thorax and upper abdomen are unremarkable. Lungs are clear. No pleural effusion or pneumothorax. No mediastinal or hilar adenopathy. Tracheobronchial tree appears intact. Images obtained through the upper abdomen show unremarkable appearance of liver, spleen, pancreas, adrenals and kidneys as visualized. IMPRESSION: Negative CT angiography of the chest. Labs on day of discharge: Labs from last 24 hours 06/20/19 06/20/19 06:15 06:15 WBC 28.12 H* RBC 5.31 Hgb 15.4 Hct 45.0 MCV 84.7 MCH 29.0 MCHC 34.2 RDW 14.5 H Plt Count 298 MPV 10.6 Immature Gran % 0.5 Neutrophils % 91.2 Lymphocytes % 4.6 Monocytes % 3.7 Eosinophils % 0.0 Basophils % 0.0 Absolute Neutrophils 25.65 H Absolute Lymphocytes 1.29 Absolute Monocytes 1.04 H Absolute Eosinophils 0.00 Absolute Basophils 0.00 Differential Comment Agrees w/ instrument RBC Morphology Normal Sodium 140 Potassium 4.6 Chloride 105 Carbon Dioxide 23.6 Anion Gap 11.4 H BUN 26 H D Creatinine 1.12 Estimated GFR/1.73 m2 >= 60.00 Glucose 121 H Calcium 9.2 PFSH Medical History Allergic asthma (Suspected) Family History Mother No problems noted. Father Hypertension Brother No problems noted. Brother No problems noted. Social History Smoking/Tobacco Use Status: Never Alcohol Intake: current Alcohol Intake frequency: a few times a week Alcohol type: beer Drug use: Never Substance use type: does not use Household members: spouse and children Housing: house Number of Children: 1 Communication Needs: None Education Level: college Details: BS Degree current occupation: [employer] Current gender identity: male What is your relationship status?: Panel score (0-1 are the most socially isolated patients): 1 What type of physical activity do you participate in: other Details: physically active with job Frequency: 5-6 times per week Seatbelt use: always Drive intox or ride w/intox race car driver: No Working smoke detector in home: Yes Carbon monox detector in home: Yes Do you feel safe at home: Yes Do you feel safe in your relationship?: Yes
--- NOTE | 2019-06-21 08:36 | PDOC.CMDIS ---
LACE Index Scoring Tool - Questions: Length of Stay (in days): 2 Acuity (Admit via E.D.?): Yes E.D. Visits: 1 - Answers: Total Score: 6 Risk of Readmission: Low Risk Care Management Discharge Reason for Hospitalization: Dyspnea. Discharge Plan: Braden will return home, follow up with his PCP and plan of care as prescribed. CM provided advance directives, CART items for his children, clarification of treatment plan. Braden signed up for the portal as well. He shared no concerns re: discharge plan. He will transport via private vehicle with his . Patient/Family Education Needs: Review discharge instructions, discuss Ask Me Three.
== END 2019-06-20 18:52 | disposition home or self-care (01) | DRG 203 ==
LOC: ER 21:15 → MS 22:15
PROVIDERS: Admitting Provider Internal Medicine; Emergency Provider Student in an Organized Health Care Education/Training Program; PCP Family Medicine; Visit Provider Internal Medicine
DX: J45.41 Moderate persistent asthma with (acute) exacerbation (principal); J20.8 Acute bronchitis due to other specified organisms; B34.9 Viral infection, unspecified; R06.82 Tachypnea, not elsewhere classified; R00.0 Tachycardia, unspecified
CPT/HCPCS: 36415; 71275; 80048; 80053; 82805; 87449; 93005; 94640; 96374; 99217; 99219; 99232; 99285; J1650; 71046; 83735; 84484; 85025; 93010; 99238; G0378; J2930; J3490; J7614; J7620; J7626

== ENCOUNTER 2019-06-24 10:32 | Outpatient (CLI) | payer OTHER, SELFPAY ==
[2019-06-24 11:19] LABS: Abs Immature Grans 0.32 k/cumm (0.0-0.09); Absolute Basophil Count 0.02 k/cumm (0.0-0.2); Absolute Eosinophil Count 0.08 k/cumm (0.0-0.7); Absolute Lymphocyte Count 1.71 k/cumm (1.2-3.4); Absolute Monocyte Count 1.28 k/cumm (0.11-0.7); Absolute Neutrophil Count 12.17 k/cumm (1.2-6.7); Basophils % 0.1; Eosinophils % 0.5; HCT 45.9 % (40.0-50.0); HGB 15.8 g/dL (13.5-17.5); Immature Grans % 2.1; Mean Corp. HGB Concentration 34.4 g/dL (32.0-36.0); Mean Corpuscular Hemoglobin 28.9 pg (27.0-33.0); Mean Corpuscular Volume 84.1 fL (80-95); Mean Platelet Volume 9.6 fL (8.0-11.0); Monocytes % 8.2; Neutrophils % 78.1; Platelet Count 378 x1000/uL (130-400); RBC 5.46 m/cumm (4.50-6.00); RBC Distribution Width 13.9 % (11.8-14.1); White Blood Cell Count 15.58 k/cumm (4.4-10.8)
== END 2019-06-24 10:52 ==
PROVIDERS: PCP Family Medicine; Visit Provider Internal Medicine
DX: J20.8 Acute bronchitis due to other specified organisms (principal); J45.909 Unspecified asthma, uncomplicated
CPT/HCPCS: 36415; 85025

== ENCOUNTER 2019-10-14 09:20 | Outpatient (CLI) | payer OTHER, MEDICAID, SELFPAY ==
[2019-10-14 10:59] LABS: Anion Gap 7.5 mmol/L (3-11); BUN 13 mg/dL (7-18); CO2 30.5 mmol/L (21.0-32.0); CREATININE 0.98 mg/dL (0.70-1.30); Chloride 103 mmol/L (98-107); Glucose 84 mg/dL (74-106); Potassium 4.8 mmol/L (3.5-5.1); Sodium 141 mmol/L (136-145); TSH (W/Ref FT4) 1.07 uIU/mL (0.36-3.74)
== END 2019-10-14 09:40 ==
PROVIDERS: PCP Family Medicine; Visit Provider Student in an Organized Health Care Education/Training Program
DX: R53.83 Other fatigue (principal); F32.9 Major depressive disorder, single episode, unspecified; E86.0 Dehydration
CPT/HCPCS: 36415; 80048; 84443

== ENCOUNTER 2020-02-19 08:09 | Outpatient (CLI) | payer MEDICAID, SELFPAY ==
[2020-02-20 16:19] LABS: COVID-19 RT-PCR UVMMC Result Negative (Negative)
== END 2020-02-19 08:29 ==
PROVIDERS: PCP Family Medicine; Visit Provider Surgery
DX: Z11.59 Encounter for screening for other viral diseases (principal); Z01.818 Encounter for other preprocedural examination
CPT/HCPCS: U0003

== ENCOUNTER 2020-02-21 06:10 | Day surgery (SDC) | payer MEDICAID, SELFPAY ==
[2020-02-21 06:15] VITALS: BP 130/80; PULSE 55; RESP 17; TEMP 36.3; O2SAT 98
--- NOTE | 2020-02-21 06:24 | ENDO_ITS ---
Date of service: 02/21/20 Time of Service: 07:26 Endoscopy Report DATE OF PROCEDURE: 02/21/20 PRE-OP DIAGNOSIS: Dysphagia POST-OP DIAGNOSIS: other (duodenitis, gastritis and esophagitis) PROCEDURE: EGD with bx SURGEON: Ruth Ann Beckman ANESTHESIA: other (General/ ASA 2/Keny Linares CRNA) ESTIMATED BLOOD LOSS: 4 PATHOLOGY: other (Duodenal bx, gastric bx and esophageal bx) COMPLICATIONS: None DISPOSITION: same day INDICATIONS: 34-year-old gentleman with a longstanding history of intermittent dysphasia to solids. The frequency has increased over the last few years. He is never had an upper endoscopy. He is not on antacids. He complains of rare heartburn symptoms for which he takes Tums if needed. He is a non-smoker and does not chew tobacco. An EGD under anesthesia was recommended. The procedure was explained to him. Risks, benefits and complications have been reviewed. Complications include but are not limited to bleeding, pain, perforation, sore throat, aspiration, and adverse reaction to the medications. Questions were entertained and answered to their satisfaction and they wished to proceed. No guarantees were given or implied. FINDINGS: mild duodenitis, mild to moderate gastritis, moderate esophagitis PROCEDURE DESCRIPTION: After informed consent was obtained the patient was take to the procedure room and placed in a supine position. Monitors were applied and a time out was done. The patients name, date of , procedure type, allergies to medications and metal in their body was reviewed. A bite block was placed and the patient was sedated. COVID test was negative. Once sedated and comfortable the gastroscope was advanced through the oropharynx which was grossly normal into the esophagus. The proximal and mid- esophagus were normal. In the distal esophagus there was moderate inflammation noted. There were no ulcers. The scope was advanced into the stomach and through the pylorus into the 3rd portion of the duodenum. The 3rd portion of the duodenum was noted to be normal. There was mild inflammation noted in the 2nd and 1st portion of the duodenum and biopsies were done. There were no ulcers. The scope was retracted back into the stomach. There was mild to moderate inflammation noted, and biopsies were done to rule out H. pylori. There were no ulcers. The scope was retro-flexed. The cardia and fundus were noted to be normal. There was no hiatal hernia noted. The scope was retracted back into the esophagus and biopsies were done of the GE junction to rule out Rodriguez's. The Z line was irregular. Grossly there was no indication of Rodriguez's. The GE junction was at 42 cm. There was mild to moderate inflammation noted in the distal esophagus and biopsies were done. The scope was removed and the patient was woken up and taken back to [facility] in stable condition. Follow up: Will start patient on Omperazole 40 mg daily. Follow up in 2 weeks
--- NOTE | 2020-02-21 06:25 | W.PM.DSUDISC ---
Discharge Plan Disposition Patient Disposition: HOME Condition: Good Discharge Details Reason For Visit: dysphagia Attending Provider: Ruth Ann Beckman Primary Care Provider: Richard Herron Home Meds and New Rx's Prescriptions: New omeprazole 40 mg capsule,delayed release(DR/EC) 40 mg PO DAILY Qty: 30 RF: 2 Continued escitalopram oxalate [Lexapro] 20 mg tablet 20 mg PO DAILY RF: 0 albuterol sulfate 90 mcg/actuation HFA aerosol inhaler 2 puff IH Q6H PRNRF: 0 levalbuterol HCl 0.63 mg/3 mL Solution For Nebulization 0.63 mg UPD Q4H PRN PRNQty: 1 RF: 0 Discharge Instructions Instructions: Diet for Stomach Ulcers and Gastritis (GEN), Duodenitis (DC), Gastritis (DC), Esophagitis (GEN) Additional Instructions: Findings: inflammation of the small bowel, stomach and esophagus Follow up: 2 weeks Please call if you develop: fevers >101.5 Nausea or Vomiting Abdominal pain that is not transient DAY SURGERY UNIT POST ENDOSCOPY INSTRUCTIONS 1. Because there will be medication in your system for the next 24 hours, you may feel a little sleepy. Your coordination will be affected. Therefore: a. Do not drive or operate dangerous equipment for 24 hours. b. Do not drink alcohol beverages for 24 hours (not even beer). c. Plan to go home and rest for the day. 2. Generally there are no restrictions on your activity after a day or so has gone by, but you may feel a bit fatigued for a few days. 3 After you arrive home you may have a light meal and return to a normal diet as you can tolerate it without feeling sick to your stomach. 4. After surgery, you may feel pain or discomfort. This should be only transient, but if it persists please contact your doctor. 5. If there are any questions regarding the findings of your procedure, please feel free to contact your doctor. 6. If you are unable to contact your doctor with a problem, contact the hospital at [phone]. 7. Continue all your regular medications unless directed otherwise. I understand the above instructions and have no questions. Signature of Patient or Responsible Adult Escort Date/Time Name of Responsible Adult Escort Signature of Nurse Date/Time Referrals: Ruth Ann Beckman MD [ [facility] STAFF PHYSICIAN] - Activity:: Activity as Tolerated Diet:: low acid Discharge Orders Discharge Orders: Discharge Order (Routine); Ordered 02/21/20 Ordered By: Ruth Ann Beckman DS: Diagnosis Discharge Diagnosis (1) Esophagitis determined by endoscopy: Status: Acute (2) Gastritis and duodenitis: Status: Acute
[2020-02-21] MEDS: Lactated Ringers 1,000 ML 80 ML IV (06:50)
--- NOTE | 2020-02-21 07:29 | STOM_PTH ---
PATIENT: Brdaen Raya LOC: [facility] U#:[id number] AGE/SX: 34/M ROOM: RE02/21/[address]: Ruth Ann Beckman MD : [id number] BED: DIS: 02/21/2020 SPEC #: [id number] RECD: 02/21/20 11:44 STATUS: PO RE #: [id number] HESHAM: 02/21/20 07:[address]: Ruth Ann Beckman DEPT: Surgical Specimen RECD BY: Dilia Merion ENTERED: 02/21/20 11:46 SP TYPE: STOMACH OTHR DR: Richard Herron DO Tissues: 1 - BIOPSY BOWEL 2 - STOMACH BIOPSY 3 - STOMACH BIOPSY 4 - ESOPHAGUS BIOPSY 5 - ESOPHAGUS BIOPSY Procedures: GROSS AND MICRO LEVEL 4 Comments: [id number]
[2020-02-21 08:17] VITALS: BP 123/69; PULSE 58; RESP 17; TEMP 36.3; O2SAT 99
== END 2020-02-21 08:28 | disposition home or self-care (01) ==
PROVIDERS: PCP Family Medicine; Visit Provider Surgery
PROC: 0DJ68ZZ Inspection of Stomach, Via Natural or Artificial Opening Endoscopic (ICD-10-PCS; CPT 43235; principal; 2020-02-21 07:30)
DX: R13.10 Dysphagia, unspecified (principal); K29.80 Duodenitis without bleeding; K29.70 Gastritis, unspecified, without bleeding; K20.9 Esophagitis, unspecified
CPT/HCPCS: 43239; 88305; J2001

== ENCOUNTER 2020-04-01 09:42 | Outpatient (CLI) | payer MEDICAID, SELFPAY ==
[2020-04-03 14:13] LABS: SARS-CoV-2 RNA Undetected (Undetected); SARS-CoV-2 Specimen Source Nasopharynx
== END 2020-04-01 10:02 ==
PROVIDERS: PCP Family Medicine; Visit Provider Family Medicine
DX: R05 Cough (principal)
CPT/HCPCS: U0003

== ENCOUNTER 2020-08-28 08:46 | Outpatient (CLI) | payer MEDICAID, SELFPAY ==
[2020-08-29 18:45] LABS: COVID-19 RT-PCR UVMMC Result Negative (Negative)
== END 2020-08-28 09:06 ==
PROVIDERS: PCP Family Medicine; Visit Provider Family Medicine
DX: Z20.828 Contact with and (suspected) exposure to other viral communicable diseases (principal)
CPT/HCPCS: U0003

== ENCOUNTER 2022-04-09 16:21 | Outpatient (REF) | payer MEDICAID, SELFPAY ==
[2022-04-11 12:06] LABS: COVID-19 RT-PCR UVMMC Result Negative (Negative)
== END 2022-04-09 16:22 | disposition home or self-care (01) ==
LOC: LBN 16:21
PROVIDERS: PCP Family Medicine; Visit Provider Nurse Practitioner
DX: Z20.822 Contact with and (suspected) exposure to COVID-19 (principal); R05.8 Other specified cough; R50.9 Fever, unspecified; Z11.52 Encounter for screening for COVID-19
CPT/HCPCS: U0003

== ENCOUNTER 2022-08-14 19:56 | Emergency (ER) | payer MEDICAID, SELFPAY ==
[2022-08-14 20:00] VITALS: BP 133/67; PULSE 78; RESP 16; TEMP 36.9; O2SAT 98
--- NOTE | 2022-08-14 20:13 | ED.GENADUL_ITS ---
Discharge Plan Disposition Patient Disposition: Home Condition: Improving Discharge Details Clinical Impression: Influenza A, Headache Primary Care Provider: Richard Herron ED Provider: Segun Peoples Concepcion Meds and New Rx's Prescriptions: New prochlorperazine maleate 10 mg tablet 10 mg PO BID PRN (Reason: headache) Qty: 10 0RF No Action (DME) compressor, for nebulizer Device See Rx Instructions .ROUTE .MEDSUPPLY Qty: 1 0RF Rx Instructions: As directed ipratropium-albuterol 0.5 mg-3 mg(2.5 mg base)/3 mL solution for nebulization 3 ml inhalation QID PRN (Reason: wheezing) Qty: 90 0RF Rx Instructions: Trial for wheezing and SOB omeprazole 40 mg capsule,delayed release(DR/EC) 40 mg PO DAILY PRN (DME) Aerochamber MV Spacer See Rx Instructions .ROUTE .MEDSUPPLY Qty: 1 Rx Instructions: 09/26/20 Pulmonology albuterol sulfate 90 mcg/actuation HFA aerosol inhaler 2 puff IH Q6H PRN (Reason: shortness of breath or wheezing) Qty: 8.5 3RF escitalopram oxalate [Lexapro] 20 mg tablet 20 mg PO DAILY Qty: 90 3RF Dulera 100-5 mcg/actuation HFA aerosol inhaler 2 puff inhalation BID Qty: 13 3RF Rx Instructions: 09/26/20 Pulm Da levalbuterol HCl 0.63 mg/3 mL Solution For Nebulization 0.63 mg UPD Q4H PRN PRNQty: 1 0RF Rx Instructions: 1 week quantity sufficient please Discharge Instructions Instructions: Influenza (ED), Acute Headache (ED) Additional Instructions: You were seen for persistent headache with history of weekly headaches. Headache improved with prochlorperazine. You have tested positive for influenza a which may be why the headache is more intense and persistent than typical. As we discussed rest, hydrate, use ibuprofen or acetaminophen as needed. Prescription for prochlorperazine to help with migraine type headache and nausea has been sent to your pharmacy. Please follow-up with primary care in regards to your headaches once you are over the flu. Return to ED for severe worsening headache, confusion, neurologic change, persistent vomiting, shortness of breath, chest pain, other concerns. Referrals: Richard Herron DO [Primary Care Provider] - Medical Decision Making Patient presenting with frontal headache and nausea. History of headaches at least once a week. This H/A is similar but more intense and has not resolve with typical OTC meds and sleep. He has concern for flu but has no fever, cough, URI type symptoms. Nursing has obtained nasal swab. Patient will be given oral prochlorperazine while waiting for swab results. Patient is positive for influenza A. He feels better after prochlorperazine his headache is not gone but is much improved. Discussed what to expect in regards to influenza. Will provide short-term prescription for prochlorperazine for headache and nausea but have advised that he will need follow-up with primary care for further management of his frequent headaches once he is recovered from influenza. Return precautions provided. Sign Out No HPI General Mode of arrival: ambulatory . Date/Time Provider Initiated Documentation: 08/14/22 20:13 . Limitations to Documentation: no limitations . Information obtained by: patient . HPI Narrative: Patient presenting to ED with frontal headache and pressure with associated nausea since last night. Really has not felt well today. Denies any fever, congestion, cough, shortness of breath, chest pain. Feels a little out of it but denies any vision change, speech change, weakness, numbness. He has weekly headaches typically resolve with [id number] medication and sleep. This is a little more intense and has not gone a. He has been around people with flu and is concerned that maybe he is coming down with it. Related Data Home Medications Medication Instructions Recorded Confirmed levalbuterol HCl 0.63 mg/3 mL 0.63 mg (3 mL) UPD Q4H PRN PRN #1 06/20/19 06/22/20 solution for nebulization mL compressor, for nebulizer #1 ea 06/29/20 06/29/20 ipratropium 0.5 mg-albuterol 3 mg 3 ml inhalation QID PRN wheezing 06/29/20 06/29/20 (2.5 mg base)/3 mL nebulization #90 mL soln inhalational spacing device #1 ea 09/27/20 (Aerochamber MV spacer) albuterol sulfate 90 mcg/actuation 2 puff inhalation Q6H PRN 06/03/21 aerosol inhaler shortness of breath or wheezing #8.5 grams omeprazole 40 mg capsule,delayed 40 mg PO DAILY PRN 06/18/21 release escitalopram oxalate 20 mg tablet 20 mg PO DAILY #90 tabs 08/28/21 (Lexapro) mometasone-formoterol HFA 100 2 puff inhalation BID #13 grams 11/04/21 mcg-5 mcg/actuation aerosol inhaler (Dulera) prochlorperazine maleate 10 mg 10 mg PO BID PRN headache #10 tabs 08/14/22 tablet Previous Rx's Medication Instructions Recorded levalbuterol HCl 0.63 mg/3 mL 0.63 mg (3 mL) UPD Q4H PRN PRN #1 06/20/19 solution for nebulization mL compressor, for nebulizer #1 ea 06/29/20 ipratropium 0.5 mg-albuterol 3 mg 3 ml inhalation QID PRN wheezing 06/29/20 (2.5 mg base)/3 mL nebulization #90 mL soln albuterol sulfate 90 mcg/actuation 2 puff inhalation Q6H PRN 06/03/21 aerosol inhaler shortness of breath or wheezing #8.5 grams escitalopram oxalate 20 mg tablet 20 mg PO DAILY #90 tabs 08/28/21 (Lexapro) mometasone-formoterol HFA 100 2 puff inhalation BID #13 grams 11/04/21 mcg-5 mcg/actuation aerosol inhaler (Dulera) prochlorperazine maleate 10 mg 10 mg PO BID PRN headache #10 tabs 08/14/22 tablet Allergies Allergy/AdvReac Type Severity Reaction Status Date / Time environmental Allergy Intermediate sneeze, Uncoded 02/22/20 14:56 runny nose, itchy mouth shrimp AdvReac Mild itchy mouth Uncoded 02/22/20 14:56 General Stated Complaint: Headache KAYLAN: 4 Review of Systems Narrative: 01/17 Review of Systems completed and is negative except as stated above in HPI (Systems reviewed: Const, Resp, CV, GI, Neuro) PFSH All Active Problems (Updated 08/14/22 @ 21:29 by Segun Peoples MD) Influenza A (Acute) Headache (Acute) 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 Counseling in [place] helped. Appreciates current couples therapy. Considering meds. Feels anxiety worse than depression. Matt 30, PHQ9 7 08/09/19. History of dysphagia Able to work on swallowing with focus and water. Fa and Grandmo had dysphagia, with fa requiring surg food disimpaction. Reactive airway disease Surgical History H/O esophagogastroduodenoscopy (~02/21/20) Family History Mother No problems noted. Father Hypertension Dysphagia Brother No problems noted. Brother No problems noted. Social History Smoking/Tobacco Use Status: Never Smoking risk assessment performed?: Yes Alcohol Intake: former Drug use: Never Substance use type: does not use Household members: spouse and children Housing: house Number of Children: 1 Communication Needs: None Education Level: college Details: BS Degree current occupation: [employer] Current gender identity: male What is your relationship status?: Panel score (0-1 are the most socially isolated patients): 1 What type of physical activity do you participate in: other Details: physically active with job Frequency: 5-6 times per week Seatbelt use: always 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 HEENT: NC/AT. Normal facial exam. Eyes: Normal conjunctiva and sclera. PERRL and EOMI. Neck: Supple. Trachea midline. Lungs: Normal respiratory effort. Lungs are clear. Cor: RRR without murmur/gallop. Good radial pulses. GI: Soft. NT/ND. Neuro: A+O x 3. Normal speech, mentation, gait. Cranial nerves II - XII grossly intact. No gross motor or sensory deficit. No pronator drift. Ext: No C/C/E. Skin: Warm and dry without rash. Course Vital Signs Vital signs: Vital Signs Temperature 98.4 F 08/14/22 20:00 Pulse 78 08/14/22 20:00 Respiratory Rate 16 08/14/22 20:00 Blood Pressure 133/67 08/14/22 20:00 Pulse Oximetry 98 08/14/22 20:00 Temperature 98.4 F 08/14/22 20:00 Pulse 78 08/14/22 20:00 Respiratory Rate 16 08/14/22 20:00 Respiratory Effort 08/14/22 20:06 Blood Pressure 133/67 08/14/22 20:00 Blood Pressure Position Sitting 08/14/22 20:00 Pulse Oximetry 98 08/14/22 20:00 Oxygen Delivery Method Room Air 08/14/22 20:00 Oxygen Flow Rate 0 08/14/22 20:00 Pain Level 3 08/14/22 20:00
[2022-08-14] MEDS: Prochlorperazine 10 MG TAB PO (20:35)
[2022-08-14 20:51] LABS: COVID-19 PCR Negative (Negative); Influenza A PCR Positive (Negative); Influenza B PCR Negative (Negative); RSV PCR Negative (Negative)
[2022-08-14 20:52] LABS: Source Nasopharynx
== END 2022-08-14 21:40 | disposition home or self-care (01) ==
PROVIDERS: Emergency Provider Emergency Medicine; PCP Family Medicine
DX: J10.2 Influenza due to other identified influenza virus with gastrointestinal manifestations (principal); R11.0 Nausea; R51.9 Headache, unspecified
CPT/HCPCS: 87637; 99283

== ENCOUNTER 2022-12-30 08:10 | Outpatient (CLI) | payer MEDICAID, SELFPAY ==
[2022-12-30 07:21] LABS: Abs Immature Grans 0.02 10^3/uL (0.0-0.06); Absolute Basophil Count 0.04 10^3/uL (0.0-0.2); Absolute Lymphocyte Count 1.81 10^3/uL (1.2-3.4); Absolute Monocyte Count 0.37 10^3/uL (0.1-0.8); Absolute Neutrophil Count 2.53 10^3/uL (1.2-6.7); Basophils % 0.7; Eosinophils % 12.8; HCT 47.2 % (40.0-50.0); Immature Grans % 0.4; Lymphocytes % 33.1; MCH 28.6 pg (27.0-33.0); MCHC 33.9 % (32.0-36.0); MCV 84 fL (80-95); MPV 9.5 fL (8.0-11.0); Monocytes % 6.8; Neutrophils % 46.2; Platelet Count 253 10^3/uL (130-400); RDW 13.5 % (11.8-14.1); RDW-SD 41.8 fL; WBC 5.47 10^3/uL (4.4-10.8)
[2022-12-30 08:06] LABS: ALT 67 U/L (16-63); AST 34 U/L (15-37); Alkaline Phosphatase 77 U/L (46-116); Anion Gap 3.8 mmol/L (3-11); BUN 13 mg/dL (7-18); Bilirubin, Total 0.4 mg/dL (0.2-1.0); CO2 33.2 mmol/L (21.0-32.0); CREATININE 1.1 mg/dL (0.70-1.30); Calcium 9.3 mg/dL (8.5-10.1); Chloride 105 mmol/L (98-107); Estimated GFR 88.12 (mL/min/1.73m2); Glucose 113 mg/dL (74-106); Magnesium 2.1 mg/dL (1.8-2.4); Potassium 4.3 mmol/L (3.5-5.1); Sodium 142 mmol/L (136-145); Total Protein 7.7 g/dL (6.4-8.2)
[2022-12-30 08:24] LABS: Hemoglobin A1C 5.6 % (<5.7)
[2022-12-31 17:57] LABS: Fructosamine 224 mcmol/L (200 - 285)
== END 2022-12-30 08:11 | disposition home or self-care (01) ==
LOC: LBO 08:10
PROVIDERS: PCP Family Medicine; Visit Provider Student in an Organized Health Care Education/Training Program
DX: R42 Dizziness and giddiness (principal); E16.2 Hypoglycemia, unspecified; R73.09 Other abnormal glucose
CPT/HCPCS: 36415; 80053; 82985; 83036; 83735; 85025

== ENCOUNTER 2024-03-10 11:28 | Outpatient (CLI) | payer MEDICAID, SELFPAY ==
[2024-03-10 13:09] LABS: Anion Gap 7.4 mmol/L (3-11); BUN 12 mg/dL (7-18); CO2 27.6 mmol/L (21.0-32.0); Calcium 8.8 mg/dL (8.5-10.1); Chloride 105 mmol/L (98-107); Estimated GFR 98.18 (mL/min/1.73m2); Glucose 87 mg/dL (74-106); Potassium 4.3 mmol/L (3.5-5.1); Sodium 140 mmol/L (136-145); TSH (W/Ref FT4) 1.16 uIU/mL (0.36-3.74); Vitamin D 25 Total 38.6 ng/mL (30-100)
== END 2024-03-10 11:29 | disposition home or self-care (01) ==
LOC: LBO 11:28
PROVIDERS: PCP Family Medicine; Visit Provider Student in an Organized Health Care Education/Training Program
DX: E16.2 Hypoglycemia, unspecified (principal); K90.9 Intestinal malabsorption, unspecified; K20.90 Esophagitis, unspecified without bleeding; K29.70 Gastritis, unspecified, without bleeding; Z79.899 Other long term (current) drug therapy; J82.83 Eosinophilic asthma; J45.909 Unspecified asthma, uncomplicated; K20.0 Eosinophilic esophagitis; E11.9 Type 2 diabetes mellitus without complications; R19.8 Other specified symptoms and signs involving the digestive system and abdomen
CPT/HCPCS: 36415; 80048; 82306; 84443

== ENCOUNTER → 2024-03-15 00:17 | Outpatient (CLI) | payer MEDICAID, SELFPAY ==
--- NOTE | 2024-03-15 07:00 | DI.US_ITS ---
Exam(s) US THYROID US SOFT TISSUE HEAD OR NECK EXAM: US THYROID CLINICAL HISTORY: fullness of THROAT/neck; ? thyroid disease. TECHNIQUE: Ultrasound thyroid performed using standard protocol. COMPARISON: US US SOFT TISSUE HEAD OR NECK from 03/15/2024 FINDINGS: ISTHMUS: 2 mm RIGHT LOBE: Size: 4.8 x 2.3 x 1.9 cm Echogenicity: Normal. Vascularity: Normal. Nodules: None. LEFT LOBE: Size: 5.3 x 1.9 x 1.7 cm Echogenicity: Normal. Vascularity: Normal. Nodules: 2 tiny colloid cysts mid and lower pole OTHER FINDINGS: No adenopathy. IMPRESSION: Normal sonographic appearance of the thyroid gland. No adenopathy or other mass in the neck. DATA REPOSITORY:
== END ==
PROVIDERS: PCP Family Medicine; Visit Provider Student in an Organized Health Care Education/Training Program
DX: K20.0 Eosinophilic esophagitis; R19.8 Other specified symptoms and signs involving the digestive system and abdomen; R22.1 Localized swelling, mass and lump, neck; J38.7 Other diseases of larynx
CPT/HCPCS: 76536

== ENCOUNTER 2025-07-25 11:47 | Emergency (ER) | payer OTHER, SELFPAY ==
--- NOTE | 2025-07-25 11:45 | RT.EKG_ITS ---
APPROVED REPORT Exam: Resting ECG Reason for Exam: chest pain Patient Location: E HR:62 bpm ECG Measurements Heart Rate 62 AXIS IN 120 P 52 QRSd 98 QRS 72 QT 374 T 58 QTc 382 Conclusion Sinus rhythm...normal P axis, V-rate 60- 99 Physician: No STEMI
[2025-07-25 12:01] VITALS: BP 126/82; PULSE 73; RESP 16; O2SAT 96
--- NOTE | 2025-07-25 12:30 | DI.RAD_ITS ---
Exam(s) XR CHEST 2V PA LATERAL EXAM: XR CHEST 2V PA LATERAL CLINICAL HISTORY: chest pain. TECHNIQUE: 2D digital imaging was performed. COMPARISON: No exams were available for comparison FINDINGS: 2 views: Heart size is normal. The mediastinum is not widened. Lungs are clear. No infiltrates nor pleural effusions. IMPRESSION: No acute pulmonary findings. DATA REPOSITORY: RADIATION DOSE DELIVERED:
[2025-07-25 13:22] LABS: Abs Immature Grans 0.01 10^3/uL (0.0-0.06); HCT 47.2 % (40.0-50.0); HGB 16.0 g/dL (13.5-17.5); Immature Grans % 0.1 %; MCH 27.9 pg (27.0-33.0); MCHC 33.9 % (32.0-36.0); MCV 82 fL (80-95); MPV 9.6 fL (8.0-11.0); Platelet Count 262 10^3/uL (130-400); RBC 5.73 10^6/uL (4.36-5.78); RDW 13.2 % (11.8-14.1); RDW-SD 39.6 fL; WBC 6.76 10^3/uL (4.4-10.8)
[2025-07-25 13:28] VITALS: RESP 15
[2025-07-25 13:43] LABS: Lipase 32 U/L (<53); Troponin I 3 ng/L (<54)
[2025-07-25 13:45] LABS: ALT 34 U/L (10-49); AST 27 U/L (<34); Albumin 4.6 g/dL (3.4-5.0); Alkaline Phosphatase 72 U/L (46-116); Anion Gap 8.1 mmol/L (3-11); BUN 15 mg/dL (9-23); Bilirubin, Total 0.50 mg/dL (0.2-1.2); CO2 27.9 mmol/L (20.0-31.0); Calcium 9.6 mg/dL (8.3-10.6); Chloride 106 mmol/L (98-107); Glucose 85 mg/dL (74-106); Potassium 4.2 mmol/L (3.5-5.1); Sodium 142 mmol/L (136-145); Total Protein 7.6 g/dL (5.7-8.2)
[2025-07-25 14:21] LABS: Troponin I < 3 ng/L (<54)
[2025-07-25 14:37] VITALS: BP 133/88; PULSE 56; RESP 15; TEMP 36.5; O2SAT 97
--- NOTE | 2025-07-26 14:25 | ED.GENADUL_ITS ---
Discharge Plan Disposition Patient Disposition: Home Condition: Stable Discharge Details Clinical Impression: Atypical chest pain Primary Care Provider: Richard Herron ED Provider: Dilia Yee Home Meds and New Rx's Prescriptions: Continued multivitamin Tablet 1 tab PO DAILY (DME) blood-glucose meter [FreeStyle Lite Meter] Kit See Rx Instructions .Route Qty: 1 1RF Rx Instructions: As directed (DME) compressor, for nebulizer Device See Rx Instructions .ROUTE .MEDSUPPLY Qty: 1 0RF Rx Instructions: As directed calcium carbonate [Tums] 200 mg calcium (500 mg) tablet,chewable 200 mg PO BID PRN (DME) Aerochamber MV Spacer See Rx Instructions .ROUTE .MEDSUPPLY Qty: 1 Rx Instructions: 09/26/20 Pulmonology albuterol sulfate 90 mcg/actuation HFA aerosol inhaler 2 puff IH Q6H PRN (Reason: shortness of breath or wheezing) Qty: 8.5 3RF (DME) OneTouch Ultra Test Strip See Rx Instructions .Route Qty: 50 0RF Rx Instructions: to use with one touch ultra blue II meter, test prn with symptoms eletriptan [Relpax] 40 mg tablet See Rx Instructions PO .COMPLEX Qty: 14 6RF Rx Instructions: take 1 tab at onset of headache; if no relief, may repeat 1 tab after at [place] 2 hrs; max = 2 tabs/24 hrs PO loratadine 10 mg tablet 10 mg PO DAILY PRN escitalopram oxalate [Lexapro] 20 mg tablet 20 mg PO DAILY Qty: 90 3RF Discharge Instructions Instructions: Chest Pain (DC) Additional Instructions: You may take Tylenol as needed for any discomfort, your tests today are quite reassuring I do recommend following up with your primary care physician and stress test at their discretion Please return earlier should you have return of pain or with any new or worsening complaints Stand Alone Forms: Portal Information Referrals: Richard Herron DO [Primary Care Provider, Medicine] Discharge Data Discharge Date/Time-TO BE ENTERED AT DEPARTURE: 07/25/25 14:44 HPI General Date/Time Provider Initiated Documentation: 07/25/25 12:16 . HPI Narrative: This 40-year-old male with history of anxiety presents with chest pain that started at rest radiating into his back. Denies history of coronary artery disease does not smoke, drink, or use illicit substances. States the pain is resolved and lasted approximately 20 minutes. Denies known injury. Denies recent flights surgeries long drives or history of coagulopathy denies any exogenous hormones. Denies fever or chills. Related Data Home Medications Medication Instructions Recorded Confirmed compressor, for nebulizer #1 ea 06/29/20 11/20/24 inhalational spacing device #1 ea 09/27/20 11/20/24 (Aerochamber MV spacer) albuterol sulfate 90 mcg/actuation 2 puff inhalation Q 6H PRN 08/17/22 11/20/24 aerosol inhaler shortness of breath or wheez ing #8.5 grams blood-glucose meter (FreeStyle #1 ea 12/29/22 11/20/24 Lite Meter kit) multivitamin 1 tab PO DAILY 12/29/2211/04 blood sugar diagnostic (OneTouch #50 ea 01/04/2311/20 Ultra Test strips) eletriptan 40 mg tablet (Relpax) See Rx Instructions P O .COMPLEX 11/01/23 11/20/24 #14 tabs loratadine 10 mg tablet 10 mg PO DAILY PRN 08/01/24 11/20/24 calcium carbonate (Tums) 200 mg PO BID PRN 09/08/24 0 11/20/24 escitalopram oxalate 20 mg tablet 20 mg PO DAILY #90 t abs 11/02/24 11/20/24 (Lexapro) Previous Rx's Medication Instructions Recorded compressor, for nebulizer #1 ea 06/29/20 albuterol sulfate 90 mcg/actuation 2 puff inhalation Q 6H PRN 08/17/22 aerosol inhaler shortness of breath or wheez ing #8.5 grams blood-glucose meter (FreeStyle #1 ea 12/29/22 Lite Meter kit) blood sugar diagnostic (OneTouch #50 ea 01/04/23 Ultra Test strips) eletriptan 40 mg tablet (Relpax) See Rx Instructions P O .COMPLEX 11/01/23 #14 tabs escitalopram oxalate 20 mg tablet 20 mg PO DAILY #90 t abs 11/02/24 (Lexapro) Allergies Allergy/AdvReac Type Severity Reaction Status Date / Time environmental Allergy Intermediate sneeze, Uncoded 07/25/25 12:03 runny nose, itchy mouth shrimp AdvReac Mild itchy mouth Uncoded 07/25/25 12:03 General Stated Complaint: Chest Pain KAYLAN: 3 Exam Narrative Exam Narrative: 40-year-old male in no acute distress no tenderness to chest abdomen lungs clear to auscultation no respiratory distress no rashes or lesions distal pulses intact no abdominal bruit or pulsatile mass Course Vital Signs Vital signs: Vital Signs Pulse 73 07/25/25 12:01 Respiratory Rate 16 07/25/25 12:01 Blood Pressure 126/82 07/25/25 12:01 Pulse Oximetry 96 07/25/25 12:01 Temperature 36.5 C 07/25/25 14:37 Pulse 56 L 07/25/25 14:37 Respiratory Rate 15 07/25/25 14:37 Respiratory Effort Normal 07/25/25 13:28 Respiratory Depth Normal 07/25/25 13:28 Respiratory Pattern Normal 07/25/25 13:28 Blood Pressure 133/88 07/25/25 14:37 Pulse Oximetry 97 07/25/25 14:37 Oxygen Delivery Method Room Air 07/25/25 12:01 Oxygen Flow Rate 0 07/25/25 12:01 Pain Level 0 07/25/25 14:37 Lab/Test Results Lab/Test Results: Laboratory Tests Range/Units 07/25/25 07/25/25 13:15 13:55 WBC (4.4-10.8) 10^3/uL 6.76 RBC (4.36-5.78) 10^6/uL 5.73 Hgb (13.5-17.5) g/dL 16.0 Hct (40.0-50.0) % 47.2 MCV (80-95) fL 82 MCH (27.0-33.0) pg 27.9 MCHC (32.0-36.0) % 33.9 RDW (11.8-14.1) % 13.2 Plt Count (130-400) 10^3/uL 262 MPV (8.0-11.0) fL 9.6 Immature Gran % % 0.1 Neutrophils % % 54.1 Lymphocytes % % 29.4 Monocytes % % 7.7 Eosinophils % % 8.3 Basophils % % 0.4 Nucleated RBC % (0.0-0.3) % 0.0 Absolute Neutrophils (1.2-6.7) 10^3/uL 3.65 Absolute Lymphocytes (1.2-3.4) 10^3/uL 1.99 Absolute Monocytes (0.1-0.8) 10^3/uL 0.52 Absolute Eosinophils (0.0-0.7) 10^3/uL 0.56 Absolute Basophils (0.0-0.2) 10^3/uL 0.03 Sodium (136-145) mmol/L 142 Potassium (3.5-5.1) mmol/L 4.2 Chloride (98-107) mmol/L 106 Carbon Dioxide (20.0-31.0) mmol/L 27.9 Anion Gap (3-11) mmol/L 8.1 BUN (9-23) mg/dL 15 Creatinine (0.73-1.18) mg/dL 0.9 Est GFR (CKD-EPI 2020) (mL/min/1.73m2) 92.99 Glucose (74-106) mg/dL 85 Calcium (8.3-10.6) mg/dL 9.6 Total Bilirubin (0.2-1.2) mg/dL 0.50 AST (<34) U/L 27 ALT (10-49) U/L 34 Alkaline Phosphatase (46-116) U/L 72 Troponin I (<54) ng/L 3 < 3 Total Protein (5.7-8.2) g/dL 7.6 Albumin (3.4-5.0) g/dL 4.6 Lipase (<53) U/L 32 Medical Decision Making Results: Chest x-ray per radiology interpretation my review does not show acute pathology, CBC, CMP, and 2 troponins are negative for acute pathology. EKG is nonischemic Assessment and plan: Patient with reassuring assessment for chest pain which is atypical in nature. Patient with chest x-ray does not show acute abnormality and remainder. Diagnostic labs do not show evidence of acute abnormality. At this time I have very low suspicion for cardiac related chest pain although if patient has continued intermittent pain he may benefit from an outpatient stress test at the discretion of his provider of course. He has remained pain-free throughout this encounter with a nonischemic EKG and troponins that are not elevated, I think his diagnostic evaluation is stable for discharge home at this time with close outpatient follow-up with his PCP [facility] All Active Problems (Updated 07/25/25 @ 14:27 by COURTNEY Rich) Atypical chest pain (Acute) Environmental allergies (Acute) Liver enzyme elevation (Acute) 2022, AST? [ ] re-check Episode of gagging (Acute) Mucus pooling in larynx (Acute) Fullness of neck (Acute) Diabetes mellitus (Chronic) Borderline PRE-DM.. Possible Dx .. 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 Fa and Grandmo had dysphagia, with fa requiring surg food disimpaction. Anxiety and depression Hx short trial Celexa in , did not like sensation and stopped (< 3mos). Counseling in [place] helped. Appreciates current couples therapy. Considering meds. Feels anxiety worse than depression. Matt 30, PHQ9 7 08/09/19. Reactive airway disease Allergic asthma 09/27/20 Da .. Dulera started (w/ aug to 1 puff in summer expected).. IL-5 Tx considered. Hypereosinophilic/Th2 phenotype asthma. Repeat CBC shows WNL eosinophils. Surgical History H/O esophagogastroduodenoscopy (~02/21/20) Family History Mother No problems noted. Father Hypertension Dysphagia Brother No problems noted. Brother No problems noted. Social History Smoking/Tobacco Use Status: Never Smoking risk assessment performed?: Yes Alcohol Intake: former Drug use: Never Substance use type: does not use Household members: spouse and children Housing: house Number of Children: 1 Communication Needs: None Education Level: college Details: BS Degree current occupation: [employer] Current gender identity: male What is your relationship status?: Panel score (0-1 are the most socially isolated patients): 1 What type of physical activity do you participate in: other Details: physically active with job Frequency: 5-6 times per week Seatbelt use: always Drive intox or ride w/intox 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
== END 2025-07-25 14:44 | disposition home or self-care (01) ==
PROVIDERS: Emergency Provider Physician Assistant; PCP Family Medicine
DX: R07.89 Other chest pain (principal); F41.9 Anxiety disorder, unspecified; E11.9 Type 2 diabetes mellitus without complications; Z79.899 Other long term (current) drug therapy
CPT/HCPCS: 80053; 83690; 93005; 99285; 71046; 84484; 85025; 93010; 99284